=== PATIENT | male | born 1960 | race Caucasian/White ===

== ENCOUNTER 2025-03-22 10:18 | Inpatient (IN) | payer OTHER ==
[2025-03-22 11:01] VITALS: BMI 23.4
[2025-03-22] MEDS ORDERED: BISMUTH SUBSALICYLATE 262 MG/15 ML BTL PO PRN (11:12)
[2025-03-22] MEDS ORDERED: guaiFENesin 600 MG TABLET.ER (FP) PO PRN (11:12)
[2025-03-22] MEDS ORDERED: IBUPROFEN 600 MG TABLET (FP) PO PRN (11:12)
[2025-03-22] MEDS ORDERED: LOPERAMIDE HCL 2 MG CAPSULE PO PRN (11:12)
[2025-03-22] MEDS ORDERED: MAG HYDROX/AL HYDROX/SIMETH 30 ML UNIT-DOSE CUP PO PRN (11:12)
[2025-03-22] MEDS ORDERED: IBUPROFEN 400 MG TABLET (FP) PO PRN (11:12)
[2025-03-22] MEDS ORDERED: BENZONATATE 200 MG CAPSULE PO PRN (11:12)
[2025-03-22] MEDS ORDERED: hydrOXYzine PAMOATE 25 MG CAPSULE (FP) PO PRN (11:12)
[2025-03-22] MEDS ORDERED: METHOCARBAMOL 500 MG TABLET PO PRN (11:12)
[2025-03-22] MEDS ORDERED: NALOXONE (NARCAN) HCL 4 MG/0.1 ML SPRAY NS PRN (11:12)
[2025-03-22] MEDS ORDERED: DICYCLOMINE HCL 10 MG CAPSULE PO PRN (11:12)
[2025-03-22] MEDS ORDERED: BENZOCAINE/MENTHOL (CHLORASEPTIC ) LOZENGE MM PRN (11:12)
[2025-03-22] MEDS ORDERED: ONDANSETRON *ODT* 4 MG TABLET SL PRN (11:12)
[2025-03-22] MEDS: NICOTINE POLACRILEX 4 MG GUM BUC PRN (13:56)
[2025-03-22] MEDS: ACETAMINOPHEN 325 MG TABLET (FP) PO PRN (20:36)
[2025-03-22] MEDS: MELATONIN 5 MG TABLETS PO SCH (22:06)
[2025-03-22] MEDS: THIAMINE 100 MG TABLET PO SCH (22:07)
[2025-03-23] MEDS: PRENATAL VITAMINS W/ FOLIC ACID TABLET (FP) PO SCH (10:22)
[2025-03-23] MEDS: MAGNESIUM HYDROX 2400MG/30ML ORAL SUSPENSION 30 ML CUP PO PRN (10:23)
[2025-03-23] MEDS ORDERED: methaDONE HCL 10 MG TABLET PO SCH (10:45)
[2025-03-23] MEDS: POLYETHYLENE GLYCOL (HEALTHYLAX) 3350 17 GM PACKET PO PRN (18:49)
[2025-03-23 21:18] VITALS: TEMP 97.6
[2025-03-23] MEDS: SUVOREXANT 10 MG TABLET PO PRN (22:36)
[2025-03-24 08:46] VITALS: BP 129/68; PULSE 73; RESP 16
== END 2025-03-24 10:04 | disposition left against medical advice (07) | DRG 894 ==
LOC: YASAS 10:18 → Y6N 12:54
PROVIDERS: ADMIT Allergy & Immunology; ATTEND Family Medicine Addiction Medicine
PROC: HZ2ZZZZ Detoxification Services for Substance Abuse Treatment (ICD-10-PCS; principal; 2025-03-22)
DX: F11.23 Opioid dependence with withdrawal (principal); F19.282 Other psychoactive substance dependence with psychoactive substance-induced sleep disorder; F19.280 Other psychoactive substance dependence with psychoactive substance-induced anxiety disorder; Z59.01 Sheltered homelessness; F10.230 Alcohol dependence with withdrawal, uncomplicated; F17.210 Nicotine dependence, cigarettes, uncomplicated; F19.24 Other psychoactive substance dependence with psychoactive substance-induced mood disorder; F41.9 Anxiety disorder, unspecified; F32.A Depression, unspecified; Z99.89 Dependence on other enabling machines and devices
CPT/HCPCS: 80305; 80307; 93005; 93010